=== PATIENT | female | born 1965 | race Caucasian/White ===

== ENCOUNTER → 2016-12-07 | Outpatient (REF) | payer BC ==
[~2016-12-07] MED LIST: ACET-654 PO; IBUP600T26 PO; LINZ145C PO; NORC5TAB PO; RIZA5TAB3 PO
== END ==
LOC: M LABDRAW1 10:46
PROVIDERS: ATTEND Physician Assistant
DX: R14.0 Abdominal distension (gaseous) (principal); R10.30 Lower abdominal pain, unspecified; K59.00 Constipation, unspecified; Z12.11 Encounter for screening for malignant neoplasm of colon

== ENCOUNTER → 2016-12-22 | Outpatient (REF) | payer BC | LOC: M SFHCPLAZ 11:43 | PROVIDERS: ATTEND Dermatology | DX: D23.39 Other benign neoplasm of skin of other parts of face (principal) ==

== ENCOUNTER → 2017-06-14 | Outpatient (REF) | payer BC ==
[~2017-06-14] MED LIST changes: -ACET-654 PO; +ACET1TAB17 PO; +ANUC25SU; +BOTO200I; +IBUP-1022 PO; -IBUP600T26 PO; +NORC1TAB4 PO; -NORC5TAB PO
[2017-06-19 00:07] LABS: ANTI-SACCHAROMYCES CEREV. IgA <20.0 Units (0.0-24.9); ANTI-SACCHAROMYCES CEREV. IgG <20.0 Units (0.0-24.9)
== END ==
LOC: M LABNEURO 18:00
PROVIDERS: ATTEND Internal Medicine Gastroenterology
DX: R10.31 Right lower quadrant pain (principal); K52.9 Noninfective gastroenteritis and colitis, unspecified

== ENCOUNTER → 2017-07-13 | Outpatient (CLI) | payer BC ==
[~2017-07-13] MED LIST changes: +E-Z-PAQUE 96% w/w SUSP 176GM BTL As Ordered ONE
--- NOTE | 2017-07-13 17:32 | REP ---
Small bowel follow-through The procedure was performed under the direct supervision of Dr. Avendano. The images were reviewed with Dr. Avendano. The application infrastructure engineer film shows no organomegaly or pathological masses. The intestinal gas pattern is nonspecific. Liquid barium was administered and the barium column was followed through the small bowel to the level of the terminal ileum. Small bowel transit time is approximately 70 minutes. During fluoroscopy gentle palpation shows all loops are freely movable and pliable. There are no fixed or angulated loops. The small bowel mucosal pattern is normal in course and caliber. There is no transition to suggest a partial small bowel obstruction. Spot filming of the terminal ileum shows it to be unremarkable. Impression: Small bowel follow-through examination within normal limits. 49 seconds of fluoro time was utilized for this procedure. Reviewed by ANT Rendon 07/13/2017 04:36 PSigned by Alex Avendano MD 07/13/2017 05:24 P
== END ==
LOC: M RAD 08:25
PROVIDERS: ATTEND Physician Assistant
DX: R10.31 Right lower quadrant pain (principal); R14.0 Abdominal distension (gaseous); K59.00 Constipation, unspecified; K63.3 Ulcer of intestine; K50.00 Crohn's disease of small intestine without complications

== ENCOUNTER 2017-08-13 11:16 | Emergency (ER) | payer BC ==
[~2017-08-13] VITALS: Ht 170.2 cm; Wt 63.3 kg
[~2017-08-13 11:16] MED LIST changes: -ANUC25SU; -BOTO200I; -E-Z-PAQUE 96% w/w SUSP 176GM BTL As Ordered ONE
[2017-08-13] MEDS ORDERED: ANUC25SU (12:09)
[2017-08-13] MEDS ORDERED: BOTO200I (12:09)
[2017-08-13] MEDS ORDERED: KETOROLAC 60 MG/2 ML VIAL (J1885) IM ONE (14:15)
[2017-08-13] MEDS ORDERED: METOCLOPRAMIDE 10 MG TAB PO ONE (14:15)
[2017-08-13] MEDS ORDERED: diphenhydrAMINE 12.5MG/5ML ELIXIR UDC PO ONE (14:15)
[2017-08-13 14:30] VITALS: BP 144/94
== END 2017-08-13 14:31 | disposition home or self-care (01) ==
LOC: M ED 11:16
DX: G43.009 Migraine without aura, not intractable, without status migrainosus (principal); M79.7 Fibromyalgia; Z91.041 Radiographic dye allergy status; Z88.8 Allergy status to other drugs, medicaments and biological substances; Z88.5 Allergy status to narcotic agent
CPT/HCPCS: 96372; 99282; J1885

== ENCOUNTER → 2017-10-16 | Outpatient (REF) | payer BC ==
[~2017-10-16] MED LIST changes: +ANUC25SU; +BOTO200I
== END ==
LOC: M LAB REF 16:59
PROVIDERS: ATTEND Physician Assistant Medical
DX: J02.9 Acute pharyngitis, unspecified (principal)

== ENCOUNTER → 2017-10-20 | Outpatient (REF) | payer BC | LOC: M LAB REF 18:36 | PROVIDERS: ATTEND Dermatology | DX: D18.01 Hemangioma of skin and subcutaneous tissue (principal) ==

== ENCOUNTER → 2017-12-02 | Outpatient (REF) | payer BC ==
[2017-12-02 17:40] LABS: BASO % 0.7 % (0.0-1.0); EOS # 0.1 10^3/uL (0.0-0.50); EOS % 2.4 % (0.0-3.0); HEMOGLOBIN 13.5 g/dl (12.0-16.0); IMMATURE GRANULOCYTE % 0.2 % (0-0); LYMPH # 2.3 10^3/uL (1.5-4.5); LYMPH % 39.2 % (24.0-44.0); MEAN CORPUSCULAR HEMOGLOBIN 29.9 pg (27.0-33.0); MEAN CORPUSCULAR HGB CONC 32.9 g/dl (32.0-36.5); MEAN CORPUSCULAR VOLUME 90.9 fl (80.0-96.0); MONO # 0.5 10^3/uL (0.0-0.8); NEUTROPHILS # 2.9 10^3/uL (1.8-7.7); NEUTROPHILS % 49.5 % (36.0-66.0); PLATELET COUNT, AUTOMATED 187 10^3/uL (150-450); RED BLOOD COUNT 4.51 10^6/uL (4.00-5.40); RED CELL DISTRIBUTION WIDTH 12.1 % (11.5-14.5); WHITE BLOOD COUNT 5.8 10^3/uL (4.0-10.0)
[2017-12-02 18:13] LABS: ERYTHROCYTE SEDIMENTATION RATE 8 mm/hr (0-30)
[2017-12-02 18:20] LABS: RHEUMATOID FACTOR QUANT < 10.0 IU/ML (0-15.0)
[2017-12-02 18:20] LABS: C REACTIVE PROTEIN QUANTITATIV < 0.30 MG/DL (0.00-0.30)
[2017-12-05 00:06] LABS: ANTINUCLEAR ANTIBODIES DIRECT Negative (Negative); Lyme Disease IgG/IgM Antibodie <0.91 ISR (0.00-0.90); Lyme Disease IgM Ab Quantitati <0.80 index (0.00-0.79)
== END ==
LOC: M LABDRAW1 14:48
DX: M22.41 Chondromalacia patellae, right knee (principal)
CPT/HCPCS: 86140

== ENCOUNTER 2018-06-01 10:59 | Emergency (ER) | payer BC ==
[2018-06-01] MEDS: METOCLOPRAMIDE INJ 10MG/2ML VIAL (J2765) IV (12:45)
[2018-06-01] MEDS: KETOROLAC 30 MG/ML VIAL (J1885) IV (12:45)
[2018-06-01] MEDS: NS 1,000 ML IV (12:45)
[2018-06-01] MEDS: diphenhydrAMINE INJ 50MG/ML VIAL (J1200) IV (12:45)
== END 2018-06-01 14:09 | disposition home or self-care (01) ==
LOC: M ED 10:59
DX: G43.909 Migraine, unspecified, not intractable, without status migrainosus (principal); K50.90 Crohn's disease, unspecified, without complications; Z91.041 Radiographic dye allergy status; Z88.6 Allergy status to analgesic agent; Z88.5 Allergy status to narcotic agent; Z79.899 Other long term (current) drug therapy
CPT/HCPCS: J1200

== ENCOUNTER → 2019-03-15 | Outpatient (REF) | payer BC ==
[~2019-03-15] MED LIST changes: -ACET1TAB17 PO; +ACET1TAB55 PO; +AMIT24CA7; +MULT1TAB10 PO; +NAPR-837 PO; -NORC1TAB4 PO; +NORC1TAB7 PO; +REGL10TA6 PO; +RIZA10TA2; +TYLE500T78 PO
== END ==
LOC: M LAB REF 16:54
PROVIDERS: ATTEND Nurse Practitioner Family
DX: M31.6 Other giant cell arteritis (principal)

== ENCOUNTER 2019-03-16 12:26 | Day surgery (SDC) | payer BC ==
[~2019-03-16] VITALS: Ht 172.7 cm; Wt 59.0 kg
[2019-03-16 12:44] VITALS: BP 122/95
== END 2019-03-16 12:48 | disposition home or self-care (01) ==
LOC: M SDC 12:26
PROVIDERS: ATTEND Surgery Vascular Surgery
DX: M31.6 Other giant cell arteritis (principal); Z53.09 Procedure and treatment not carried out because of other contraindication

== ENCOUNTER → 2019-05-02 | Outpatient (REF) | payer BC | LOC: M LABDRAW1 11:47 | PROVIDERS: ATTEND Internal Medicine Gastroenterology | DX: K59.00 Constipation, unspecified (principal); K50.00 Crohn's disease of small intestine without complications; R10.31 Right lower quadrant pain ==

== ENCOUNTER → 2019-08-08 | Outpatient (REF) | payer BC ==
[2019-08-08 18:33] LABS: HEMATOCRIT 40.7 % (36.0-47.0); HEMOGLOBIN 13.6 g/dl (12.0-15.5); MEAN CORPUSCULAR HEMOGLOBIN 30.9 pg (27.0-33.0); MEAN CORPUSCULAR HGB CONC 33.4 g/dl (32.0-36.5); MEAN CORPUSCULAR VOLUME 92.5 fl (80.0-96.0); PLATELET COUNT, AUTOMATED 183 10^3/uL (150-450); WHITE BLOOD COUNT 4.1 10^3/uL (4.0-10.0)
[2019-08-08 18:52] LABS: ALBUMIN 4.2 GM/DL (3.2-5.2); ALT/SGPT 23 U/L (12-78); BILIRUBIN,TOTAL 0.9 MG/DL (0.2-1.0); BLOOD UREA NITROGEN 12 MG/DL (7-18); C REACTIVE PROTEIN QUANTITATIV < 0.30 MG/DL (0.00-0.30); CALCIUM LEVEL 9.5 MG/DL (8.5-10.1); CARBON DIOXIDE LEVEL 28 MEQ/L (21-32); CHLORIDE LEVEL 105 MEQ/L (98-107); CREATININE FOR GFR 0.76 MG/DL (0.55-1.30); GLOMERULAR FILTRATION RATE > 60.0 (>51); GLUCOSE, FASTING 71 MG/DL (70-100); SODIUM LEVEL 142 MEQ/L (136-145); TOTAL PROTEIN 7.2 GM/DL (6.4-8.2)
[2019-08-08 18:59] LABS: ERYTHROCYTE SEDIMENTATION RATE 6 mm/hr (0-30)
[2019-08-08 19:00] LABS: TOTAL 25(OH) VITAMIN D 46.8 NG/ML (30.0-100.0)
[2019-08-08 19:01] LABS: VITAMIN B12 LEVEL 499 PG/ML (247-911)
[2019-08-09 09:35] LABS: HEPATITIS B SURFACE ANTIGEN NEGATIVE (NEGATIVE)
[2019-08-09 12:26] LABS: HEPATITIS C VIRUS ABY INDEX 0.1 INDEX (<0.8)
== END ==
LOC: M LABDRAW1 17:58
PROVIDERS: ATTEND Internal Medicine Gastroenterology
DX: K50.00 Crohn's disease of small intestine without complications (principal); R10.31 Right lower quadrant pain; M54.5 Low back pain

== ENCOUNTER → 2019-08-15 | Outpatient (CLI) | payer BC ==
--- NOTE | 2019-08-15 10:32 | REP ---
DUPLEX DOPPLER ULTRASOUND MESENTERIC ARTERIES: Real-time ultrasound evaluation and duplex Doppler interrogation of mesenteric arteries performed prior to and following a meal. Celiac axis demonstrates peak systolic velocity 156 cm/s which is normal. Peak systolic velocity of the proximal superior mesenteric artery is 316 cm/s, end diastolic velocity 42.2 cm/s. The peak systolic velocity is mildly elevated above normal of 300 cm/s. Mid superior mesenteric artery demonstrates peak systolic velocity 93.5 cm/s. There is an increase in flow velocities after meal challenge, as expected. Inferior mesenteric artery is not visualized due to overlying bowel gas. IMPRESSION: Normal flow velocity in the celiac axis. Mildly increased flow velocity in the proximal superior mesenteric artery suggest mild stenosis. Electronically Signed by Derrell Jones MD 08/16/2019 04:06 P
== END ==
LOC: M RAD 07:26
PROVIDERS: ATTEND Physician Assistant
DX: R10.31 Right lower quadrant pain (principal); R19.7 Diarrhea, unspecified

== ENCOUNTER → 2019-08-25 | Outpatient (CLI) | payer BC ==
[~2019-08-25] MED LIST changes: +ISOVUE-370 76% 100ML VIAL (Q9967) As Ordered ONE; -RIZA5TAB3 PO; +RIZA5TAB52 PO
--- NOTE | 2019-08-26 10:05 | REP ---
REASON: Abdominal pain. COMPARISON: None. The abdominal aorta is of normal caliber and patency. There is no evidence of stenosis, ectasia or aneurysmal dilatation. The iliac and femoral arteries are of normal caliber and patency bilaterally and without evidence of significant stenosis. There is no ectasia or aneurysmal dilatation. The celiac axis and superior mesenteric arteries are normal in appearance without evidence of significant stenosis. There are two left renal arteries both of normal caliber and patency. Perfusion to the kidneys is symmetric. There is a paucity of mesenteric vessels on the right compared to the left. The liver, gallbladder, spleen, pancreas, adrenal glands, and kidneys are within normal limits. The bowel loops and their mesenteries are within normal limits. There is no free fluid or free air. There is no intra-abdominal mass or adenopathy. There is no para-aortic adenopathy. CT PELVIS: The bowel loops and their mesenteries are within normal limits. There is no free fluid or free air. There is no evidence of a mass or adenopathy. Bone window technique throughout the exam shows the osseous structures to be within normal limits for the patient's age. Mild spinal and sacroiliac joint degenerative hip changes are noted. IMPRESSION: There is no evidence of acute intra-abdominal or intrapelvic disease. Findings as described above. There is a paucity of mesenteric vessels on the right compared to the left. The significance of this is uncertain. Electronically Signed by Ermias Cha DO 08/26/2019 10:55 A
== END ==
LOC: M RAD 16:44
PROVIDERS: ATTEND Internal Medicine Gastroenterology
DX: R10.31 Right lower quadrant pain (principal); K52.9 Noninfective gastroenteritis and colitis, unspecified; K50.00 Crohn's disease of small intestine without complications
CPT/HCPCS: 74174; Q9967

== ENCOUNTER → 2019-11-01 | Outpatient (REF) | payer BC ==
[~2019-11-01] MED LIST changes: -ISOVUE-370 76% 100ML VIAL (Q9967) As Ordered ONE
[2019-11-01 17:23] LABS: PLATELET COUNT, AUTOMATED 167 10^3/uL (150-450)
[2019-11-01 17:34] LABS: INR 1.05; PROTHROMBIN TIME 13.4 SECONDS (11.8-14.0)
[2019-11-01 17:35] LABS: PARTIAL THROMBOPLASTIN TIME 31.8 SECONDS (25.0-38.4)
== END ==
LOC: M LABDRAW1 15:42
PROVIDERS: ATTEND Physician Assistant
DX: M47.812 Spondylosis without myelopathy or radiculopathy, cervical region (principal); Z01.812 Encounter for preprocedural laboratory examination

== ENCOUNTER → 2020-01-24 | Outpatient (REF) | payer BC | LOC: M LABDRAW1 13:10 | PROVIDERS: ATTEND Internal Medicine Gastroenterology | DX: R10.31 Right lower quadrant pain (principal); K59.00 Constipation, unspecified; K50.00 Crohn's disease of small intestine without complications; K52.9 Noninfective gastroenteritis and colitis, unspecified; M54.5 Low back pain ==

== ENCOUNTER → 2020-04-11 | Outpatient (REF) | payer BC | LOC: M LAB REF 16:58 | PROVIDERS: ATTEND Internal Medicine | DX: M50.23 Other cervical disc displacement, cervicothoracic region (principal) ==

== ENCOUNTER → 2020-05-16 | Outpatient (CLI) | payer BC | LOC: M LABSMTC 11:19 | PROVIDERS: ATTEND Physical Medicine & Rehabilitation | DX: Z03.818 Encounter for observation for suspected exposure to other biological agents ruled out (principal); Z11.59 Encounter for screening for other viral diseases ==

== ENCOUNTER → 2020-06-05 | Outpatient (CLI) | payer BC ==
[2020-06-05 15:10] LABS: HEMATOCRIT 39.9 % (36.0-47.0); HEMOGLOBIN 13.1 g/dl (12.0-15.5); MEAN CORPUSCULAR HEMOGLOBIN 30.2 pg (27.0-33.0); MEAN CORPUSCULAR HGB CONC 32.8 g/dl (32.0-36.5); MEAN CORPUSCULAR VOLUME 91.9 fl (80.0-96.0); PLATELET COUNT, AUTOMATED 189 10^3/uL (150-450); RED BLOOD COUNT 4.34 10^6/uL (4.00-5.40); WHITE BLOOD COUNT 5.4 10^3/uL (4.0-10.0)
[2020-06-05 15:16] LABS: ALBUMIN 3.9 GM/DL (3.2-5.2); ALT/SGPT 31 U/L (12-78); BILIRUBIN,TOTAL 0.4 MG/DL (0.2-1.0); BLOOD UREA NITROGEN 15 MG/DL (7-18); C REACTIVE PROTEIN QUANTITATIV < 0.30 MG/DL (0.00-0.30); CALCIUM LEVEL 9.2 MG/DL (8.5-10.1); CARBON DIOXIDE LEVEL 32 MEQ/L (21-32); CHLORIDE LEVEL 107 MEQ/L (98-107); CREATININE FOR GFR 0.75 MG/DL (0.55-1.30); GLOMERULAR FILTRATION RATE > 60.0 (>51); GLUCOSE, FASTING 92 MG/DL (70-100); SODIUM LEVEL 141 MEQ/L (136-145)
[2020-06-05 15:22] LABS: INR 0.99; PARTIAL THROMBOPLASTIN TIME 31.5 SECONDS (25.0-38.4); PROTHROMBIN TIME 12.8 SECONDS (11.8-14.0)
[2020-06-05 15:31] LABS: ERYTHROCYTE SEDIMENTATION RATE 7 mm/hr (0-30)
== END ==
LOC: M PLALAB 12:42
PROVIDERS: ATTEND Internal Medicine Gastroenterology
DX: R10.31 Right lower quadrant pain (principal); K59.00 Constipation, unspecified; K50.00 Crohn's disease of small intestine without complications

== ENCOUNTER → 2020-06-26 | Outpatient (REF) | payer BC | LOC: M LAB REF 16:39 | PROVIDERS: ATTEND Internal Medicine Gastroenterology | DX: K50.00 Crohn's disease of small intestine without complications (principal); R19.7 Diarrhea, unspecified; K52.9 Noninfective gastroenteritis and colitis, unspecified ==

== ENCOUNTER → 2020-09-30 | Outpatient (CLI) | payer BC ==
[2020-09-30 18:13] LABS: HEMATOCRIT 42.6 % (36.0-47.0); HEMOGLOBIN 13.6 g/dl (12.0-15.5); MEAN CORPUSCULAR HEMOGLOBIN 29.6 pg (27.0-33.0); MEAN CORPUSCULAR HGB CONC 31.9 g/dl (32.0-36.5); MEAN CORPUSCULAR VOLUME 92.8 fl (80.0-96.0); PLATELET COUNT, AUTOMATED 197 10^3/uL (150-450); RED BLOOD COUNT 4.59 10^6/uL (4.00-5.40); WHITE BLOOD COUNT 4.7 10^3/uL (4.0-10.0)
[2020-09-30 18:35] LABS: ALBUMIN 4.1 GM/DL (3.2-5.2); ALT/SGPT 19 U/L (12-78); BILIRUBIN,TOTAL 0.6 MG/DL (0.2-1.0); BLOOD UREA NITROGEN 15 MG/DL (7-18); CALCIUM LEVEL 9.3 MG/DL (8.5-10.1); CARBON DIOXIDE LEVEL 30 MEQ/L (21-32); CHLORIDE LEVEL 105 MEQ/L (98-107); CREATININE FOR GFR 0.86 MG/DL (0.55-1.30); GLOMERULAR FILTRATION RATE > 60.0 (>51); GLUCOSE, FASTING 79 MG/DL (70-100); POTASSIUM SERUM 4.3 MEQ/L (3.5-5.1); SODIUM LEVEL 140 MEQ/L (136-145); TOTAL PROTEIN 7.1 GM/DL (6.4-8.2)
[2020-09-30 18:41] LABS: TOTAL 25(OH) VITAMIN D 46.1 NG/ML (30.0-100.0)
[2020-09-30 18:42] LABS: VITAMIN B12 LEVEL 501 PG/ML (247-911)
[2020-09-30 18:47] LABS: ERYTHROCYTE SEDIMENTATION RATE 8 mm/hr (0-30)
== END ==
LOC: M PLALAB 14:11
PROVIDERS: ATTEND Internal Medicine Gastroenterology
DX: K50.00 Crohn's disease of small intestine without complications (principal); R19.7 Diarrhea, unspecified; E55.9 Vitamin D deficiency, unspecified

== ENCOUNTER → 2021-02-06 | Outpatient (CLI) | payer BC ==
--- NOTE | 2021-02-06 14:20 | REP ---
INDICATION: PAIN. COMPARISON: None. TECHNIQUE: Bilateral foot series: Total of 9 views. Weightbearing AP and lateral views included. FINDINGS: Overall mineralization pattern is normal. There is a mild hallux valgus on the left visible on weight-bearing view. Joint spaces are preserved. No abnormality is seen in the tarsal arch is period no acute erosive changes seen. IMPRESSION: No acute bony abnormality. <Electronically signed by Segundo Avendano > 02/06/21 [id number]
== END ==
LOC: M SOG 11:00
PROVIDERS: ATTEND Family Medicine
DX: M79.671 Pain in right foot (principal); M79.672 Pain in left foot

== ENCOUNTER → 2021-06-09 | Outpatient (REF) | payer BC | LOC: M LAB REF 17:05 | PROVIDERS: ATTEND Internal Medicine | DX: K50.018 Crohn's disease of small intestine with other complication (principal) ==

== ENCOUNTER → 2021-09-10 | Outpatient (REF) | payer BC | LOC: M LAB REF 14:17 | PROVIDERS: ATTEND Internal Medicine | DX: R19.7 Diarrhea, unspecified (principal); K50.00 Crohn's disease of small intestine without complications ==

== ENCOUNTER → 2021-09-25 | Outpatient (REF) | payer BC | LOC: M LAB REF 14:18 | PROVIDERS: ATTEND Internal Medicine Gastroenterology | DX: R19.7 Diarrhea, unspecified (principal); R10.84 Generalized abdominal pain; K50.00 Crohn's disease of small intestine without complications ==

== ENCOUNTER → 2022-01-14 | Outpatient (REF) | payer OTHER | LOC: M LAB REF 16:18 | PROVIDERS: ATTEND Internal Medicine | DX: E55.9 Vitamin D deficiency, unspecified (principal) ==

== ENCOUNTER → 2022-01-19 | Outpatient (CLI) | payer OTHER | LOC: M WHC 13:40 | PROVIDERS: ATTEND Obstetrics & Gynecology | DX: Z12.31 Encounter for screening mammogram for malignant neoplasm of breast (principal) ==

== ENCOUNTER → 2022-11-05 | Outpatient (REF) | payer OTHER | LOC: M LAB REF 12:19 | PROVIDERS: ATTEND Physician Assistant Medical | DX: R10.84 Generalized abdominal pain (principal) ==